=== PATIENT | female | born 1955 | race Caucasian/White ===

== ENCOUNTER 2022-05-14 14:00 | Outpatient (RCR) | payer MEDICARE, OTHER, SELFPAY | END 2022-05-14 16:38 | disposition home or self-care (01) | PROVIDERS: PCP Family Medicine; Visit Provider Physician Assistant Surgical | DX: M75.102 Unspecified rotator cuff tear or rupture of left shoulder, not specified as traumatic (principal); M19.012 Primary osteoarthritis, left shoulder; Z51.89 Encounter for other specified aftercare | CPT/HCPCS: 97110; 97112; 97161 ==

== ENCOUNTER 2022-08-05 09:37 | Day surgery (SDC) | payer MEDICARE, OTHER, SELFPAY ==
[2022-08-05] VITALS (19 sets, daily range): BP systolic 120–169; BP diastolic 57–87; PULSE 60–110; RESP 12–20; TEMP 36.4–37.3; O2SAT 88–97; BMI 42.9
[2022-08-05] MEDS: LACTATED RINGERS 1000 ML 1,000 ML 100 ML IV ×2 (10:25→14:02)
[2022-08-05] MEDS: SODIUM CHLORIDE 0.9 % (FLUSH) 10 ML SYRINGE IVF (10:25)
--- NOTE | 2022-08-05 12:40 | W.ANESCHARGE ---
Anesthesia Charges Start Date/Time Anesthesia Start Date: 08/05/22 Anesthesia Start Time: 11:42 Stop Date/Time Anesthesia Stop Date: 08/05/22 Anesthesia Stop Time: 12:40 Summary Emergency: No
--- NOTE | 2022-08-05 13:05 | SUR.PREOP ---
TIME?OUT:?1305, left shoulder PT/RN/MDA?VERIFICATION?OF?SURGICAL?SITE,?PROCEDURE,?AND?CONSENT OBTAINED?PRIOR?TO?INVASIVE?PROCEDURE.
[2022-08-05] MEDS: fentaNYL 100 MCG/2 ML inj IVP (13:08)
[2022-08-05] MEDS: MIDAZOLAM HCL 1 MG/ML inj IVP (13:08)
--- NOTE | 2022-08-05 13:20 | SUR.PREOP ---
home covid test negative
[2022-08-05] MEDS: CEFAZOLIN 2 GM in 0.9 % SODIUM CHLORIDE Mini-bag 100 ML IVPB (13:35)
[2022-08-05] MEDS: EPINEPHrine 1 MG in SODIUM CHLORIDE IRRIG SOLUTION 3,000 ML 3001 MG IRRIGATION ×5 (14:16→15:52)
--- NOTE | 2022-08-05 14:56 | P.NB_ITS ---
Nerve Block Nerve Block Time Seen by Provider: 13:05 Date Seen: 08/05/22 Type of block requested by surgeon for post-operative analgesia: supraclavicular Side: left Time out performed: Yes Verification of patient name: Yes Verification of date of : Yes Site marking: site marked Name of person performing procedure: Moreno Continuous monitoring Was continuous monitoring of O2 sat, B/P, boat outboard engine mechanic, recorded every 15 minutes?: Yes Procedure Checklist: sterile prep, needles and gloves Ultrasound guided. Images saved: Yes Medications given in 5ml increments after negative aspiration: Ropivicaine %: 0.5 mL: 20 Needle gauge: 22 Decadron (mg): 10 Precedex (mcg): 25 Patient tolerated procedure well: Yes Block Charges Block Charge (with Pro Fee): Brachial Plexus Use of Ultrasound Machine for Block: Yes- US Guidance/pain block
--- NOTE | 2022-08-05 15:51 | P.ORPRC_ITS ---
Procedure Note Date of procedure: 08/05/22 Procedure: PREOPERATIVE DIAGNOSES: 1. Left shoulder rotator cuff tear. 2. Left shoulder AC degenerative joint disease 3. Left shoulder high-grade partial-thickness long head biceps tear 4. Left shoulder labral tearing 5. 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 Left shoulder subacromial impingement syndrome. POSTOPERATIVE DIAGNOSES: 1. Left shoulder rotator cuff tear. 2. Left shoulder AC degenerative joint disease 3. Left shoulder high-grade partial-thickness long head biceps tear 4. Left shoulder labral tearing 5. 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 Left shoulder subacromial impingement syndrome. NAME OF OPERATION: 1. Left shoulder arthroscopic rotator cuff repair (upper border subscapularis and full-thickness supraspinatus) 2. Left shoulder arthroscopic distal clavicle excision 3. Left shoulder arthroscopic long head of biceps tenotomy 4. Left shoulder arthroscopic extensive glenohumeral debridement 5. Left shoulder arthroscopic bursectomy, subacromial decompression/partial acromioplasty. SURGEON: Jose Elias Milan MD CHOIR DIRECTOR: Mateusz Samaniego PA-C. Of note, a skilled it assistant was critical for this case to aide in patient positioning, suture manipulation, arm positioning, instrument positioning, and closure. ANESTHESIA: General plus preoperative supraclavicular block. EBL: 50 mL IMPLANTS: Arthrex 4.75 mm BioComposite SwiveLock suture anchor (x1); 5.5 mm BioComposite SwiveLock suture anchor (x3); 5.5 mm BioComposite corkscrew suture anchor (x1) COMPLICATIONS: Of note, the miniscule tip to the scorpion needle did break off during 1 of the attempted passages of the suture through the rotator cuff superiorly. After inspection on both the articular side and the bursal side, this was not encountered or visualized. This tip it has a slight blunted surface to it is extremely small and thin. INDICATIONS: The patient is a pleasant, 67-year-old female who has experienced left shoulder pain that has been increasing in recent time. Physical exam and imaging were consistent with a rotator cuff tear. Given their findings, as well as the weakness and pain, and inadequate response to nonoperative management, recommendation was made for surgery. FINDINGS: Exam under anesthesia revealed stable shoulder with excellent range of motion. The diagnostic arthroscopy revealed grade 2-3 chondromalacia humeral head and glenoid with some loose flaps. The Subscapularis tendon was torn from its upper border with moderate retraction. The long head of the biceps tendon was torn high-grade partial-thickness man. The superior rotator cuff tendon was found to be torn full-thickness in an L-shaped type pattern retracted posteriorly. The labrum was degeneratively frayed and torn in the anterior and superior aspects primarily. No loose bodies were identified within the pouch or subscapularis recess. PROCEDURE: Following a thorough discussion of risks, benefits, and alternatives, consent was obtained and the left shoulder was marked. The patient was brought to the operating room and placed supine on the operating table. Induction of anesthesia was completed after preoperative supraclavicular block was administered in preop holding. Appropriate time out was performed identifying proper patient, site, and procedure. 2 g IV Ancef was administered within 1 hour of incision preoperatively. The left upper extremity was prepped and draped in the appropriate sterile fashion using ChloraPrep prep. This was after the patient was positioned in the beach chair with their head in neutral alignment and all bony prominences well padded. The shoulder was insufflated with 20mL of normal saline via an 18g spinal needle from a posterior approach. An 11 blade skin incision allowed a blunt trochar to be inserted and diagnostic arthroscopy to be performed with the findings as noted above. An anterior portal was established with an outside in technique. This allowed the probe to be inserted and confirm the diagnostic arthroscopic findings. The shaver was then inserted and allowed debridement of the anterior and superior labrum. Additionally, the long of the biceps was released from the bicipital tuberosity for arthroscopic tenotomy. The stump was debrided with a shaver. Debridement of the loose chondral flaps on both the glenoid and humeral head chondral tissue was also performed with the torpedo shaver. Following this, the upper border subscapularis was repaired after debriding the lesser tuberosity with the shaver and [place] cautery. Subscapularis was captured in horizontal mattress fashion with a fiber tape suture. The tails were brought to a single anchor in the lesser tuberosity with excellent reapproximation of the subscap tendon and good excursion/tension. Thereafter, the subacromial space was entered. Here, a complete bursectomy and partial acromioplasty/subacromial decompression was performed with a combination of radiofrequency ablator, the shaver, and a 5.5 mm bur. Additionally, distal clavicle excision was performed with the bur. 8 mm of distal clavicle was resected based on the width of our bur. Further inspection of the supraspinatus and infraspinatus rotator cuff was performed. This identified the tear as noted above. The margins of the tear were debrided, and the greater tuberosity was debrided with a combination of the [place] cautery, shaver, and bur on reverse setting. After gentle decortication, a posterior medial anchor was 1st placed. This intended to be a 2.6 mm FiberTak RC. Unfortunately, this ended up pulling out of the bone. When the hip using a 5.5 mm SwiveLock suture anchor with 1 of the tapes passed through its eyelet. This tape was passed with a fiber link through the posterior rotator cuff tissue that have been retracted. In anterior medial 5.5 mm corkscrew suture anchor was chosen as well. This allowed us to pass the 4 tails of the double loaded suture independently. We were able to tie these arthroscopically to help take the tension off the rotator cuff. Tails from this as well as the posterior medial anchor tails were passed then into 2 separate lateral row anchors. Excellent reapproximation rotator cuff to the greater tuberosity was achieved. After finishing this, it was determined that a side to side marginal convergence suture would benefit the repair in the anterior aspect. Thus, 1 of the tapes was passed and tied accordingly. Prior to anchor commercial driver's license driver removal, the eyelet sutures were tugged on for each anchor and found that the anchor had excellent stability within the bone. The shoulder was placed through range of motion and found to be stable. The rotator cuff was re-probed and found to be stable. Instruments were removed. Excess fluid was drained, closure performed with 4-0 Monocryl and Steri-Strips. Dressings were applied. Sling was applied. The patient was awoken from anesthesia and transferred to the PACU in stable condition. A skilled it assistant was critical for this case to aid in patient positioning, limb positioning, skill to manipulate arthroscopic instruments and camera, suture management, patient safety, and closure. PLAN: 1. Elbow, forearm, wrist and digit range of motion of operative extremity as tolerated. 2. Encouraged ice. 3. [place] for pain as needed. 4. Sling at all times except for ROM and showering. 5. Follow up with PA visit in 1-2 weeks for wound check. Initiate physical therapy following that visit for passive range of motion. Initiate active assisted range of motion at 4-6 weeks depending on tear size. May do pendulums now.
[2022-08-05] MEDS: EPINEPHrine 1 MG in SODIUM CHLORIDE IRRIG SOLUTION 3,000 ML 2200 MG IRRIGATION (15:53)
--- NOTE | 2022-08-05 16:18 | W.ANESCHARGE ---
Anesthesia Charges Start Date/Time Anesthesia Start Date: 08/05/22 Anesthesia Start Time: 13:31 Stop Date/Time Anesthesia Stop Date: 08/05/22 Anesthesia Stop Time: 16:16 Summary Emergency: No
--- NOTE | 2022-08-05 16:22 | W.ANESCHARGE ---
Anesthesia Charges Start Date/Time Anesthesia Start Date: 08/05/22 Anesthesia Start Time: 13:31 Stop Date/Time Anesthesia Stop Date: 08/05/22 Anesthesia Stop Time: 16:16 Summary Emergency: No
[2022-08-05] MEDS: ONDANSETRON 2 MG/ML inj 4 MG IVP (16:34)
--- NOTE | 2022-08-05 17:46 | SUR.PHASEII ---
oxygen sats dipping into the mid 80's between deep breathing. able to bring them up but unable to maintain. will send to m/s for continued monitoring of sats.
--- NOTE | 2022-08-05 18:07 | SUR.PHASEII ---
pt continues to drop her sats into the upper 80's. will send her to m/s for observation
--- NOTE | 2022-08-05 18:26 | SUR.PHASEII ---
sent pt to m/s at 1814, report to nurse at bedside
--- NOTE | 2022-08-05 20:25 | PC.NURSE ---
Patient brought to room 247 via W/C from [facility]. Up with SBA, tolerated well. Slight dizziness upon standing, but feeling subsided quickly. VSS. CMS intact, LUE numb. Denies pain. Taking ice chips and food.
--- NOTE | 2022-08-05 20:31 | PC.NURSE ---
Patient has secured a ride home and someone who will stay with her this evening. Mateusz LOPEZ, updated, and states patient may discharge to home if oxygen sats have been WNL. Primary nurse notified of this.
[2022-08-05] MEDS: ACETAMINOPHEN 325 MG TABLET 650 MG PO (21:05)
[2022-08-05] MEDS: SENNOSIDES 1 TAB TABLET 2 TAB PO (21:05)
--- NOTE | 2022-08-05 22:46 | PM.IMPN1 ---
Progress Note: A&P Assessment and plan (1) Rotator cuff tear, left: Status: Acute (2) Rotator cuff insufficiency of left shoulder: Problem details: 66-year-old female left shoulder rotator cuff insufficiency, concern for supraspinatus tendon tear, long head biceps tear versus tendinopathy, verses subluxation Status: Acute (3) Tendinopathy of left rotator cuff: Status: Acute Plan 1. s/p Left rotator cuff repair; pain control; diet per surgery 2. Hx of HTN; conitnue metoprolol; lisinopril, hctz in AM Time Spent With Patient Total time spent: 15 Subjective Date Seen: 08/05/22 Interval history: patient doing well after surgery tolerating diet denies cp, sob PREOPERATIVE DIAGNOSES:? 1.? Left shoulder rotator cuff tear. 2.? Left shoulder AC degenerative joint disease 3.? Left shoulder high-grade partial-thickness long head biceps tear 4.? Left shoulder labral tearing 5.? 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 Left shoulder subacromial impingement syndrome. POSTOPERATIVE DIAGNOSES:? 1.? Left shoulder rotator cuff tear. 2.? Left shoulder AC degenerative joint disease 3.? Left shoulder high-grade partial-thickness long head biceps tear 4.? Left shoulder labral tearing 5.? 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 Left shoulder subacromial impingement syndrome. NAME OF OPERATION:? 1.? Left shoulder arthroscopic rotator cuff repair (upper border subscapularis and full-thickness supraspinatus) 2.? Left shoulder arthroscopic distal clavicle excision 3.? Left shoulder arthroscopic long head of biceps tenotomy 4.? Left shoulder arthroscopic extensive glenohumeral debridement 5.? Left shoulder arthroscopic bursectomy, subacromial decompression/partial acromioplasty. Exam Narrative: Exam Narrative: Gen: no acute distress HEENT: NCAT EOMI mmm Neck: Supple CV: RRR normal s1 s2 Lungs: CTAB Abd: Soft,nt, nd Neuro: Alert, oriented, CN grossly intact; nonfocal screening?exam Psych: appropriate affect MSK: age appropriate muscle mass Skin; Warm, dry no rash on face Const: Vital Signs, click to edit/add: Vital Signs - 24 hr 08/05/22 10:11 08/05/22 13:05 08/05/22 13:10 Temperature 98.7 F Pulse Rate 81 66 60 Pulse Rate [Right Pulse Oximeter] Respiratory Rate 20 20 20 Blood Pressure 169/71 H 146/77 H 129/75 Blood Pressure [Le ft Arm] Blood Pressure [Ri ght Arm] Pulse Oximetry 95 97 96 Oxygen Delivery Me thod Room Air Nasal Cannula Nasal Cannula Oxygen Flow Rate 2 2 08/05/22 16:10 08/05/22 16:15 08/05/22 16:20 Temperature 97.9 F Pulse Rate 110 H 103 H 92 Pulse Rate [Right Pulse Oximeter] Respiratory Rate 18 16 16 Blood Pressure 145/72 H 140/79 H 134/74 Blood Pressure [Le ft Arm] Blood Pressure [Ri ght Arm] Pulse Oximetry 94 92 91 Oxygen Delivery Me thod OxyMask Oxygen Flow Rate 8 08/05/22 16:25 08/05/22 16:30 08/05/22 16:35 Temperature Pulse Rate 87 85 81 Pulse Rate [Right Pulse Oximeter] Respiratory Rate 14 12 12 Blood Pressure 135/72 134/67 129/73 Blood Pressure [Le ft Arm] Blood Pressure [Ri ght Arm] Pulse Oximetry 90 92 92 Oxygen Delivery Me thod Room Air Oxygen Flow Rate 08/05/22 16:40 08/05/22 16:55 08/05/22 17:13 Temperature 97.9 F 97.5 F L Pulse Rate 78 73 80 Pulse Rate [Right Pulse Oximeter] Respiratory Rate 12 20 20 Blood Pressure 126/70 126/87 129/68 Blood Pressure [Le ft Arm] Blood Pressure [Ri ght Arm] Pulse Oximetry 93 93 88 Oxygen Delivery Me thod Room Air Room Air Oxygen Flow Rate 08/05/22 17:36 08/05/22 17:58 08/05/22 18:27 Temperature 97.5 F L 97.7 F Pulse Rate 80 85 74 Pulse Rate [Right Pulse Oximeter] Respiratory Rate 20 20 20 Blood Pressure 121/63 131/64 Blood Pressure [Le ft Arm] 148/83 H Blood Pressure [Ri ght Arm] Pulse Oximetry 91 92 Oxygen Delivery Me thod Room Air Room Air Room Air Oxygen Flow Rate 08/05/22 18:37 08/05/22 20:50 Temperature 99.1 F Pulse Rate Pulse Rate [Right Pulse Oximeter] 80 96 Respiratory Rate 20 20 Blood Pressure Blood Pressure [Le ft Arm] 149/74 H Blood Pressure [Ri ght Arm] 162/81 H Pulse Oximetry 95 90 Oxygen Delivery Me thod Room Air Room Air Oxygen Flow Rate
--- NOTE | 2022-08-06 02:05 | PC.NURSE ---
2100: Pt was asking about discharge, but noted oximetry 87-89% while awake and eating, informed her to use IS and we will monitor her oximetry for a half hourish, but after a couple minutes she dipped to 85% while watching tv, thus pt staying the night with oxygen via nc @1lpm. updated.
[2022-08-06] MEDS: ACETAMINOPHEN 325 MG TABLET 650 MG PO ×2 (03:30→08:44)
[2022-08-06 03:47] VITALS: BP 121/69; PULSE 83; RESP 18; TEMP 36.6; O2SAT 91
--- NOTE | 2022-08-06 07:34 | PC.NURSE ---
Status [id number] Pt alert and oriented. Denies pain to left arm. PRN tylenol given for headache. BP elevated at beginning of shift but improved overnight. Requiring 1L of supplemental oxygen to maintain sats >90%. Attempted to wean to room air but desats to 88-89%. Left arm in sling. Dressing CDI. Voiding without difficulty. Intermittent resting in chair overnight. Hopeful for d/c today.
[2022-08-06 08:00] VITALS: BP 131/63; PULSE 79; RESP 20; TEMP 36.8; O2SAT 92
[2022-08-06] MEDS: lisinopriL 20 MG TABLET PO (08:49)
[2022-08-06] MEDS: hydroCHLOROthiazide 12.5 MG CAPSULE PO (08:49)
[2022-08-06] MEDS: METOPROLOL SUCCINATE (XL) 25 MG TAB PO (08:49)
[2022-08-06] MEDS: SODIUM CHLORIDE 0.9 % (FLUSH) 10 ML SYRINGE IVF (08:50)
[2022-08-06 11:00] VITALS: PULSE 71; RESP 18; TEMP 36.8; O2SAT 92
== END 2022-08-06 11:30 | disposition home or self-care (01) ==
LOC: OR 12:28 → MEDSURG 20:00
PROVIDERS: PCP Family Medicine; Visit Provider Orthopaedic Surgery Sports Medicine
PROC: (CPT 29805; principal; 2022-08-05 11:00)
DX: M75.122 Complete rotator cuff tear or rupture of left shoulder, not specified as traumatic (principal); S46.112A Strain of muscle, fascia and tendon of long head of biceps, left arm, initial encounter; M19.012 Primary osteoarthritis, left shoulder; M94.212 Chondromalacia, left shoulder; M75.42 Impingement syndrome of left shoulder; M25.512 Pain in left shoulder; S43.432A Superior glenoid labrum lesion of left shoulder, initial encounter
CPT/HCPCS: 29827; 29826; 29824; 29823; 29828; 01400; 01630; 64415; 76942; A4565; A9270; C1713; J0171; J0690; J1100; J2250; J2405; J2704; J2710; J2795; J3010; J7120

== ENCOUNTER 2022-12-31 15:00 | Outpatient (RCR) | payer MEDICARE, OTHER, SELFPAY ==
--- NOTE | 2022-09-03 10:04 | PT.OPEX ---
PT [place] Outpatient Eval PT [facility] Outpatient Eval Start: 09/03/22 08:59 Freq: Status: Active Protocol: Document 09/03/22 09:00 [facility] (Rec: 09/03/22 10:00 [facility] [id number]) E-signed By Benigno Moseley PT Physical Therapy Outpatient Evaluation Insurance Information Recert Due Date 12/02/22 Insurance Name Medicare B Medical Diagnosis s/p L RCR 08/05/22 Treating Diagnosis L shoulder pain Left shoulder impaired ROM Referring JESSICA Allison Subjective Subjective Patient just recently stopped using the sling 4 weeks post- op. Pain is intermittent. Sleep is still disrupted by pain. Hard to find just the right amount support. Only taking Advil for pain. Pain Comments At worst: 8/10 Painfree when not moving Date of Last Physician Visit 08/12/22 Date of Next Physician Visit 09/08/22 Date of Surgery (If applicable) 08/05/22 Current Work Status Retired Preferred Name Alejandra Precautions Treatment Precautions/Contraindications PROM for first 4-6 weeks Therapy Limitations/Systems Review Not Limited Objective Other/Pertinent Objective Left shoulder: PROM Flexion: 120 deg Abduction: 120 deg ER: 45 deg IR: 55 deg Left elbow/wrist: WNL Strength: Shoulder not tested d/t post op protocol restrictions Left ellbow: 4/5 wrist/hand: WNL Functional Test Performed & Score Left shoulder: Unable to perform any active movements with left shoulder Assessment Assessment/Impression 67 year old female ~one month s/p left RCR (08/05/22) presents with impaired ROM and strength as are to be expected post-op. For only just starting PT today, patient tolerated PROM quite well. She has a history of more involved R RCR, so is familiar with the rehab process. Patient to benefit from skilled PT for safe progression of rehab protocol Primary Functional Limitations any activity that involves use of left UE (ie reach overhead , sleep, lift/carry, don/doff jacket) Plan of Care Rehabilitation Potential Excellent Physical Therapy Goals In 2-3 weeks, patient will: 1) Restore full PROM left shoulder to facilitate progression to next phase of rehab 2) Report 50% improvement in sleep ability in relation to pain In 6-8 weeks, patient will: 3) Reach into overhead cabinet to retrieve light object, painfree 4) Don/doff jacket/pullover shirt with ease and painfree 5) Sleep not disrupted by shoulder pain 6) Be I with comprehensive HEP to further functional progress independently Coordination/Communication With Referral Source Treatment Plan/Direct Interventions Manual Therapy,Neuromuscular Re-ed,Self-Care/Home Management,Therapeutic Activities,Therapeutic Exercises Direct Interventions Clarification s/p RCR protocol Comments Frequency/Duration 1-2x/week for first 2-3 weeks. Decrease to 1x/ for an additional 5-6 weeks Patient Will Be Discharged From Therapy Completion of LTG(s), Independent w/HEP, Independently Progressing Evaluation Billing Untimed Code Treatment Minutes 25 Complexity Low Certification Information Initial Certification Date 09/03/22 Ending Certification Date 12/02/22 Provider Signature Shows Agreement With POC & Medical Necessity Physician Signature & Date Requested Please Sign/Date Here Physician Comment/Change : Physician NPI Number #
--- NOTE | 2022-12-07 17:23 | PT.OPDNX ---
PT [place] Outpatient Daily Note PT [facility] Out[facility] Daily Note Start: 09/03/22 08:59 Freq: Status: Active Protocol: Document 12/07/22 15:05 [facility] (Rec: 12/07/22 15:46 [facility] [id number]) E-signed By Benigno Moseley, PT PT OP Daily Progress Note Visit Information Note Type Daily Note,Recert/Progress Note Visit Number [id number] Insurance Authorized Visits up to 18 on POC Insurance Information Recert Due Date 03/05/23 Insurance Name Medicare B Medical Diagnosis s/p L RCR 08/05/22 Treating Diagnosis L shoulder pain Left shoulder impaired ROM Referring JESSICA Allison Subjective Subjective Pt does not feel like her shoulder is getting better. She is wondering if she should get in to see Dr. Milan sooner than 3-4 weeks out. She also is noticing crunching in her shoulder. Pain Comments Left shoulder pain will get severe at worst. Objective Other/Pertinent Objective Left shoulder AROM/PROM Flexion: 90 deg/ 140 deg (pain ) Abd: 45 deg/ 155 deg ER: reach to left occiput/ 85 deg IR: reach to left PSIS/ 70 deg Functional Test Performed & Score Reach into overhead cabinet: unable to due to pain Reach behind head to wash hair : difficult and painful Patient Instructed in Risks/Benefits Yes Therapeutic Exercise Therapeutic Exercise Minutes (minutes) 40 Therapeutic Exercise: To Restore overhead pulleys Functional Status Check of AROM left shoulder Forward bent on bench L horizontal abduction, painfree GTB IR 30x, painfree YTB ER 30x, painfree GTB rows 30x, painfree GTB shoulder ext 30x, painfree Supine AAROM left shoulder flexion, painful and crunching Advised Alejandra to focus on stretching/ROM exercises to maintain current ROM along with continuing strengthening ex that are non-pain provoking . Treatment Minutes Timed Code Treatment Minutes 40 Total Treatment Time 40 Billing Units Therapeutic Exercise Units 3 Assessment/Impression Assessment/Impression Alejandra has regressed in the past two weeks with her s/p RCR rehab with increasing left shoulder pain most aggravated by overhead movements. Her PROM is WNL but active flexion and abduction are limited significantly by pain. Rotational strength testing with elbow by side is 4/5 and painfree. It is not clear what is causing the flare of her shoulder pain active flexion and abduction, but I do recommend adding on additional skilled PT for every other week check-ins until, at a minimum, she has her f/u with Dr Milan 01/05/23/ Plan of Care Physical Therapy Goals In 2-3 weeks, patient will: 1) Restore full PROM left shoulder to facilitate progression to next phase of rehab - nearly met 2) Report 50% improvement in sleep ability in relation to pain In 6-8 weeks, patient will: 3) Reach into overhead cabinet to retrieve light object, painfree - not met 4) Don/doff jacket/pullover shirt with ease and painfree - not met 5) Sleep not disrupted by shoulder pain- not met 6) Be I with comprehensive HEP to further functional progress independently- progressing toward Daily Plan of Care Change POC; See Comments Daily Plan of Care Comments Continue skilled PT 2-3x/month for 2-3 more months. 8 more visits. Recertification Information Initial Certification Date 12/02/22 Recertification Start Date 12/07/22 Recertification Due Date 03/05/23 Reasons to Continue Skilled Therapy Pt continues to have left shoulder pain with active flexion and abduction. She has not met her functional goals. Rehabilitation Potential Good/Excellent Patient is self-motivated and compliant with HEP/rehab activities Continued Plan of Care and Interventions Left shoulder ROM/progression RTC strengthening/ scap stabilization ex Skilled MT, prn Provider Signature Shows Agreement With POC & Medical Necessity Physician Comment/Change Comment or Changes Physician NPI Number #
== END 2023-03-23 13:52 | disposition home or self-care (01) ==
PROVIDERS: PCP Family Medicine; Visit Provider Physician Assistant Surgical
DX: Z98.890 Other specified postprocedural states (principal); Z74.09 Other reduced mobility; M25.512 Pain in left shoulder; Z51.89 Encounter for other specified aftercare
CPT/HCPCS: 97110; 97112; 97140; 97161; 97535

== ENCOUNTER 2023-04-12 08:44 | Outpatient (CLI) | payer MEDICARE, OTHER, SELFPAY | END 2023-04-12 08:45 | disposition home or self-care (01) | LOC: CT 08:45 | PROVIDERS: PCP Family Medicine; Visit Provider Orthopaedic Surgery Sports Medicine | DX: M19.012 Primary osteoarthritis, left shoulder (principal); M75.122 Complete rotator cuff tear or rupture of left shoulder, not specified as traumatic; Z01.818 Encounter for other preprocedural examination | CPT/HCPCS: 73200 ==

== ENCOUNTER 2023-08-02 09:34 | Day surgery (SDC) | payer MEDICARE, OTHER, SELFPAY ==
[2023-08-02] VITALS (24 sets, daily range): BP systolic 119–171; BP diastolic 36–88; PULSE 58–94; RESP 16–20; TEMP 35.8–36.7; O2SAT 88–98; BMI 41.1
--- OUTSIDE RECORDS SUMMARY | 2023-08-02 09:38 | XMS_ITS | Continuity of Care Document ---
Author Name Unknown Organization [facility] Address [address] [place] [address] Phone Care Team Providers Care Pearl Stringer Name Role Phone Marlon SAM, Amitressa Unavailable Unavailable Allergies, Adverse Reactions, Alerts Substance Reaction Status Criticality No Known Allergies Active No Inform ation Medications Medication Instructions Dosage Effective Dates (start - stop) Status Comments Medrol (Roger) 4 mg tablets in a dose pack take by po route Not Available - Active Lidoderm 5 % topical patch apply 1 patch by transdermal route every day (May wear up to 12hours.) 1.00 patch - Active Valium 5 mg tablet Take one tablet 30 minutes before procedure. - Active METOPROLOL SUCCINATE (unknown strength) Not Available - Active CARBAMAZEPINE ER (unknown strength) Not Available - Active Procedures Procedure Date Office/Outpatient Visit,Est, Mod 2015 X-Ray Exam Lower Spine 2-3 Views 2015 Office/Outpatient Visit,Est, Mod 2014 X-Ray Exam Lower Spine 2-3 Views 2014 Postop Followup Visit X-Ray Exam Lower Spine 2-3 Views 2014 Arthdsis Post/Posterolatrl/Postinterbody Lumbar Remove Intraspinal Lesion, Lumbar Low Back Disk Surgery/Decompress 2013 Insert Spine Fixation, Posterior 2013 Apply Spinal Prosthetic Device 14 Autograft, Spine Surgery, Local 014 Allograft, Spine Surg, Morselized Pa Arthdsis Post/Posterolatrl/Postinterb angel Lumbar Remove Intraspinal Lesion, Lumbar 3 Modifier Low Back Disk Surgery/Decompr ess Pa Assist Insert Spine Fixation, Posteri or Pa Assist Apply Spinal Prosthetic Device Office/Outpatient Visit,Est, Mod 2013 X-Ray Exam Lwr Spine, Min 4 Views Office/Outpatient Visit,New, Mod 2013 Advance Directives Directive Yes / No Effective Date File Name No Information Encounters Encounter Description Practice Location Reason(s) For Visit Diagnoses Date Provider Providers Copied on Encounter [facility], [address] [facility], [place], [place], [id number], tel:[phone] [facility] No Information 7 Marlon Palmer [facility], [address], [id number], [place]. tel:[phone] [facility], [address] [place] [address], [id number], [place] tel:[phone] [facility] No Information 7 Ecryland Arthur. [address] [place] [address], [id number], [place]. tel:[phone] [facility], [address] [facility], [place], [place], [id number], tel:[phone] [facility] No Information 6 Ecryland Arthur. [address], [id number], [place]. tel:[phone] Office/Outpa tient Visit,Est, Mod [facility], [address], [place], [place], [id number], [place] tel:[phone] [facility] Spinal stenosis, lumbar region 6 Eckrfrancie Arthur. [address], [id number], [place]. tel:[phone] Referring Provider: [facility] [address] [place] [address], [place], [address]. tel:[phone] Office/Outpa tient Visit,Est, Mod [facility], [address], [place], [place], [id number], [place] tel:[phone] [facility] Spinal stenosis of lumbar region without neurogenic claudication Spinal stenosis of lumbar region with neurogenic claudication 0-201 5 Mehbod Amir. [facility] [place], [address], [place], [place], [id number], [place]. tel:[phone] Referring Provider: [facility] [address] [place] [address], [place], [address]. tel:[phone] [facility], [address], [place], [place], [id number], [place] tel:[phone] [facility] Backache, unspecifiedO VERWEIGHT 6201 5 Mehbod Amir. [facility] [place], [address], [place], [place], [id number], [place]. tel:[phone] Referring Provider: [facility] [address] [place] [address], [address]. tel:[phone] [facility], [address], [place], [place], [id number], [place] tel:[phone] [facility] No Information 0-201 4 Mehbod Amir. [facility] [place], [address] [place] [address] [address], [place], [place], [id number], [place]. tel:[phone] Referring Provider: [facility] [address] [place] [address], [place], [address]. tel:[phone] Office/Outpa tient Visit,Est, Mod Z [facility] [place], [address], [place], [address], [place] tel:[phone] [facility] No Information 4 Mehbod Bryan. [facility] [place], [address], [place], [place], [id number], [place]. tel:[phone] Referring Provider: [facility] [address] [place] [address], [place], [address]. tel:[phone] Office/Outpa tient Visit,New, [facility] [place], [address], [place], [address], [place] tel:[phone] [facility] Back Pain (chief complaint) No Information Susie Espinoza. [facility], [address], [address], [place], [place], [id number], [place]. tel:[phone] Referring Provider: [facility] [address] [place] [address], [place], [address]. tel:[phone] Family History Family Member Type Diagnosis Age At Onset No Information Payers Payer name Insurance type Covered republican ID Authoriza tion(s) [employer] CI [id number] Social History Type Description Quantity Date Captured Comments Sex Female Smoking Status No Information Chief Complaint And Reason For Visit No Information Reason For Referral Reason For Referral No Information Plan Of Treatment Date Type Action Status Future Order: Radiology Order AP Lateral Lumbar (APLatLumb), Ordered on: Ordered History Of Present Illness Encounter Date Complaint History Of Prese nt Illness Back Pain Functional Status Date Functional Assessmen t No Information Instructions Date Instruction Additional Infor mation Weight Management Related to Ove rweight Assessments Type Assessment Date No Information Patient Care Teams Name Effective Dates (start - stop) Status Members No Information
--- OUTSIDE RECORDS SUMMARY | 2023-08-02 09:39 | XMS_ITS | Continuity of Care Document ---
Author Name Unknown Organization [facility] Address [address] [place] [address] Phone Care Team Providers Care Asset Manager Name Role Phone Marlon SAM, Amitressa Unavailable [...] Providers Copied on Encounter [facility], [address] [facility], [place], [place], [id number], tel:[phone] [facility] No Information 7 Marlon Palmer [facility], [address], [id number], [place]. tel:[phone] [facility], [address] [place] [address], [id number], [place] tel:[phone] [facility] No Information 7 Ecryland Arthur. [address] [place] [address], [id number], [place]. tel:[phone] [facility], [address] [facility], [place], [place], [id number], tel:[phone] [facility] No Information 6 Ecryland Arthur. [address], [id number], [place]. tel:[phone] Office/Outpa tient Visit,Est, Mod [facility], [address], [place], [place], [id number], [place] tel:[phone] [facility] Spinal stenosis, lumbar region 6 Eckrfrancie Arthur. [address], [id number], [place]. tel:[phone] Referring Provider: [facility] [address] [place] [address], [place], [address]. tel:[phone] Office/Outpa tient Visit,Est, Mod [facility], [address], [place], [place], [id number], [place] tel:[phone] [facility] Spinal stenosis of lumbar region without neurogenic claudication Spinal stenosis of lumbar region with neurogenic claudication 0-201 5 Mehbod Amir. [facility] [place], [address], [place], [place], [id number], [place]. tel:[phone] Referring Provider: [facility] [address] [place] [address], [place], [address]. tel:[phone] [facility], [address], [place], [place], [id number], [place] tel:[phone] [facility] Backache, unspecifiedO VERWEIGHT 6201 5 Mehbod Amir. [facility], [address], [place], [place], [id number], [place]. tel:[phone] Referring Provider: [facility] [address] [place] [address], [address]. tel:[phone] [facility], [address], [place], [place], [id number], [place] tel:[phone] [facility] No Information 0-201 4 Mehbod Amir. [facility], [address] [place] [address] [address], [place], [place], [id number], [place]. tel:[phone] Referring Provider: [facility] [address] [place] [address], [place], [address]. tel:[phone] Office/Outpa tient Visit,Est, Mod Z [facility], [address], [place], [address], [place] tel:[phone] [facility] No Information 4 Mehbod Bryan. [facility], [address], [place], [place], [id number], [place]. tel:[phone] Referring Provider: [facility] [address] [place] [address], [place], [address]. tel:[phone] Office/Outpa tient Visit,New, [facility] [place], [address], [place], [address], [place] tel:[phone] [facility] Back Pain (chief complaint) No Information Susie Espinoza. [facility], [address], [address], [place], [place], [id number], [place]. tel:[phone] Referring Provider: [facility] [address] [place] [address], [place], [address]. tel:[phone] Family History Family Member Type Diagnosis Age At Onset No Information Payers Payer name Insurance type Covered green party ID Authoriza tion(s) [employer] CI [id number] Social History Type Description Quantity Date Captured [...]
[2023-08-02] MEDS: LACTATED RINGERS 1000 ML 1,000 ML 100 ML IV ×2 (09:50→13:45)
--- NOTE | 2023-08-02 10:21 | CRLHL7_ITS ---
For Patients: As a result of the Cures Act, medical imaging exams and procedure reports are released immediately into your electronic medical record. You may view this report before your referring provider. If you have questions, please contact your health care provider. INDICATION: Left shoulder surgery. Follow-up. TECHNIQUE: Two postoperative images of the left shoulder. FINDINGS: Left total shoulder arthroplasty. The components are adequately aligned and well seated. No postoperative dislocation. No erosive change. IMPRESSION: Left total shoulder arthroplasty. The components are adequately aligned and well seated. Dictated by Ankur Schumacher MD @ 08/03/2023 9:34:10 AM (Electronically Signed)
[2023-08-02] MEDS: OXYCODONE (CR) 10 MG TAB.ER.12H PO (11:15)
[2023-08-02] MEDS: ACETAMINOPHEN 500 MG TABLET 1000 MG PO ×2 (11:15→18:09)
[2023-08-02] MEDS: fentaNYL 100 MCG/2 ML inj IVP (11:20)
[2023-08-02] MEDS: MIDAZOLAM HCL 1 MG/ML inj IVP (11:20)
[2023-08-02] MEDS: SODIUM CHLORIDE 0.9 % (FLUSH) 10 ML SYRINGE IVF (11:27)
--- NOTE | 2023-08-02 11:28 | SUR.PREOP ---
TIME?OUT:?1119 PT/RN/MDA?VERIFICATION?OF?SURGICAL?SITE,?PROCEDURE,?AND?CONSENT OBTAINED?PRIOR?TO?INVASIVE?PROCEDURE.
[2023-08-02] MEDS: CEFAZOLIN 2 GM in 0.9 % SODIUM CHLORIDE Mini-bag 100 ML IVPB ×2 (11:45→18:09)
[2023-08-02] MEDS: TRANEXAMIC ACID 100 MG/ML INJ 1000 MG IV (11:45)
--- NOTE | 2023-08-02 12:04 | W.PM.H&PU ---
History & Physical Update History & Physical Update H&P Reviewed and patient assessed: No changes noted
--- NOTE | 2023-08-02 12:29 | P.NB_ITS ---
Nerve Block Nerve Block Time Seen by Provider: 11:19 Date Seen: 08/02/23 Type of block requested by surgeon for post-operative analgesia: supraclavicular Side: left Time out performed: Yes Verification of patient name: Yes Verification of date of : Yes Site marking: site marked Name of person performing procedure: Moreno Continuous monitoring Was continuous monitoring of O2 sat, B/P, traffic monitor specialist, recorded every 15 minutes?: Yes Procedure Checklist: sterile prep, needles and gloves Ultrasound guided. Images saved: Yes Medications given in 5ml increments after negative aspiration: Ropivicaine %: 0.5 mL: 20 Needle gauge: 22 Decadron (mg): 10 Precedex (mcg): 25 Patient tolerated procedure well: Yes Block Charges Block Charge (with Pro Fee): Brachial Plexus Use of Ultrasound Machine for Block: Yes- US Guidance/pain block
--- NOTE | 2023-08-02 12:30 | W.ANESCHARGE ---
Anesthesia Charges Start Date/Time Anesthesia Start Date: 08/02/23 Anesthesia Start Time: 11:38 Stop Date/Time Anesthesia Stop Date: 08/02/23 Anesthesia Stop Time: 13:30
--- NOTE | 2023-08-02 14:39 | W.ANESCHARGE ---
Anesthesia Charges Start Date/Time Anesthesia Start Date: 08/02/23 Anesthesia Start Time: 11:38 Stop Date/Time Anesthesia Stop Date: 08/02/23 Anesthesia Stop Time: 13:30
--- NOTE | 2023-08-02 14:41 | P.ORPRC_ITS ---
Procedure Note Date of procedure: 08/02/23 Procedure: PREOPERATIVE DIAGNOSIS: 1. Left shoulder osteoarthrosis, primary, severe with poor rotator quality/integrity 2. Left long head of the biceps tendinopathy and tenosynovitis POSTOPERATIVE DIAGNOSIS: 1. Left shoulder osteoarthrosis, primary, severe with poor cuff tissue quality 2. Left long head of the biceps tendinopathy and tenosynovitis PROCEDURE: 1. Left reverse shoulder arthroplasty. 2. Left long head of biceps open tenodesis SURGEON: Jose Elias Milan MD. FRONT OFFICE REPRESENTATIVE: Mateusz Samaniego PA-C; Yo MENDES - Of note, a skilled hospital administrative assistant was critical for this case to aid in patient positioning, tissue retraction, limb manipulation/positioning, retraction for glenoid exposure, which was challenging, awareness and protection of critical structures, and closure. ANESTHESIA: General plus supraclavicular block EBL: 150 ml IMPLANTS: DJ0 surgical Altivate humeral stem size 8 small shell, short with P2 porous coating vitamin E neutral poly small socket insert RSP glenoid base plate P2 porous coating with 4 perimeter locking screws 32 neutral glenosphere with retaining screw COMPLICATIONS: None evident INDICATIONS: The patient is a pleasant 68-year-old female who underwent a previous arthroscopic rotator cuff repair. Unfortunately, this failed. Her rotator cuff retear was found to be massive with significant retraction, atrophy, and fatty infiltration. Given her ongoing pain and dysfunction and failure of nonoperative management, surgery was indicated. DESCRIPTION OF PROCEDURE: Following a thorough discussion of risks, benefits, and alternatives, consent was obtained and the left shoulder was marked. The patient was brought to the operating room and placed supine on the operating table. Induction of anesthesia was undertaken. 2 g IV Ancef and 1 g tranexamic acid was administered within 1 hr of incision preoperatively. Appropriate time- out was performed identifying proper patient, site, and procedure. The operative extremity was prepped and draped in the appropriate sterile fashion using ChloraPrep after the patient was positioned in the lazy beach chair position with head in neutral alignment and all bony prominences well padded. A longitudinal incision was made for deltopectoral approach. Deltoid was retracted laterally. Cephalic vein was identified and retracted laterally as well. Vein was spared/protected throughout the case. The clavipectoral fascia was identified and divided longitudinally staying lateral to the conjoined tendon / coracoid. The conjoined tendon was protected with a blunt Hohmann. The long head of biceps tendon was identified through the bicipital groove distal part of the groove. It still was adhesed and head tenosynovitis surrounding it. The upper 1/4 of the pectoralis major was also released from its insertion. The long head of the biceps was tenodesed to the pectoralis major tendon. The remaining proximal tendon tissue was excised. The rotator cuff was inspected and found to have good integrity with the subscapularis but fair integrity with a supraspinatus, and a decision for a reverse shoulder arthroplasty was confirmed. The remaining long head of biceps, of note, was significant flattened, thickened, with abundant tenosynovitis. A subscapularis cuff of tissue was left via tenotomy for later repair with the remaining subscapularis released in a subperiosteal fashion with the Bovie. This was tagged for later repair. The 3 sisters were cauterized. The upper subscapularis was released from the capsule with a curved Kirby scissors towards the glenoid. The inferior subscapularis was divided from the capsular tissue on its caudal surface with particular caution for the axillary nerve. This was palpated anterior to the subscapularis both prior to and near the finish of the case. Inferior humeral head osteophytes were excised with caution taken throughout the case with regards to the axillary nerve. The humerus was dislocated, and humeral head cut completed. Then a protector plate was applied. We turned our attention to the glenoid. The humerus was retracted posteriorly. The subscap was protected anteriorly and the labrum/long head biceps origin was excised circumferentially. The capsule was released along the anterior and inferior portions of the glenoid cautiously with a Bustos elevator being careful not to penetrate deep. The glenoid had appropriate exposure, and was prepared with the cannulated system with a target of approximately 5-10? of inferior tilt and neutral anteversion (patient had its size 9 ? of retroversion initially). Utilizing the match Point 3D printed guide, the guide pin was placed. The 3D printed jig removed and after placing the guide pin, the tap was placed followed by the glenoid reaming. The real base plate was opened, and inserted, and excellent compression/purchase was achieved with the central screw. Peripheral screws were then drilled, measured, and placed. The glenosphere was then placed consistent with the preoperative plan utilizing the above noted glenosphere. After securing the glenosphere with the locking, torque limited screw, attention was turned back to the humerus. A canal finder was placed followed by various reamers by hand. The real humeral stem was then opened and inserted with excellent metaphyseal fit and stability. Trial poly was placed and the shoulder reduced. Excellent reduction and stability achieved with appropriate tension on the conjoined tendon. At this stage, trial implants were removed, and the real implants inserted and the shoulder reduced. A 3 minute Betadine soak was performed followed by a thorough irrigation with normal saline. Subscapularis was repaired with #1 PDS to the cuff of tissue on the lesser tuberosity. Excellent reapproximation of tissue achieved. Hemostasis was found to be appropriate. The deltopectoral interval was reapproximated with 0 Vicryl, subcutaneous and subcuticular closure was then performed with number 2-0 Vicryl and 4-0 Monocryl, respectively. A skilled hospital administrative assistant was critical for this case to aid in patient positioning, tissue retraction, limb manipulation/positioning, retraction for glenoid exposure, which was challenging, awareness and protection of critical structures, and closure. PLAN: 1. Sling at all times for the operative upper extremity. 2. AROM of elbow, forearm, wrist, and digits as tolerated. 3. PT/OT consults for education and assistance. 4. Social consult for discharge planning. 5. 23 hr perioperative antibiotics. 6. Early ambulation, and SCDs for DVT prophylaxis. 7. Admit to the hospital for the above 8. Analgesics p.r.n.
--- NOTE | 2023-08-02 16:35 | RESP.RT ---
Placed ETCO2 monitor on Pt. Currently her end tidal, is 36 with a RR of 18. SPo2 94% on 1L. talked about getting a sleep study when she is healed from shoulder, pt is in full agreement.
--- NOTE | 2023-08-02 17:00 | P.IMCN_ITS ---
Date of Consult Patient: Scotty Patient Consult date: 08/02/23 Requesting Physician: Orthopedics Primary Care Provider: Andie Crenshaw MD Consult Narrative Narrative: Alejandra Scott is a 68 year old female admitted to the hospital for left total shoulder arthroplasty. Procedure performed by Dr. Milan without complications. He requests consultation for management of medical problems postoperatively. Patient reports today that she has mild pain in the area of her left shoulder. She feels like her left hand is regaining some motion and sensation. Preoperatively she reports she was generally doing well without recent illness or injury. She has previously had a rotator cuff repair on this left shoulder which was unsuccessful at relieving her chronic shoulder pain. She is apprehensive about recovery and rehab of this left shoulder postoperatively. Preop evaluation was unremarkable except for noting that she was hypoxic. Because the hypoxia she had evaluation including a chest CT for PE and an echocardiogram. These were both unremarkable. She reports that she is chronically hypoxic at home 4 years with O2 sats running in the low 90s. She reports having no dyspnea associated with this. She reports that occasionally her will complain of her snoring. There has been no noted apneic spells. Review of Systems Narrative: No recent illness or injury. [facility] Medical History (Updated 08/02/23 @ 17:08 by Jose Berger MD) Obstructive sleep apnea ?G47.33 - Obstructive sleep apnea (adult) (pediatric) (ICD-10) Hyperlipidemia ?E78.5 - Hyperlipidemia, unspecified (ICD-10) Vertigo ?R42 - Dizziness and giddiness (ICD-10) Urinary incontinence ?R32 - Unspecified urinary incontinence (ICD-10) Right trigeminal neuralgia ?G50.0 - Trigeminal neuralgia (ICD-10) Refusal of statin medication by patient ?Z53.20 - Procedure and treatment not carried out because of patient's decision for unspecified reasons (ICD-10) History of renal calculi ?Z87.442 - Personal history of urinary calculi (ICD-10) History of chronic hepatitis ?Z87.19 - Personal history of other diseases of the digestive system (ICD-10) Left shoulder pain ?M25.512 - Pain in left shoulder (ICD-10) Bone spur of foot ?M77.50 - Other enthesopathy of unspecified foot and ankle (ICD-10) Lumbar stenosis ?M48.061 - Spinal stenosis, lumbar region without neurogenic claudication (ICD-10) Low back pain ?M54.50 - Low back pain, unspecified (ICD-10) Liver problem ?K76.9 - Liver disease, unspecified (ICD-10) Elevated cholesterol ?E78.00 - Pure hypercholesterolemia, unspecified (ICD-10) Hypertension ?I10 - Essential (primary) hypertension (ICD-10) Surgical History (Updated 08/02/23 @ 17:08 by Jose Berger MD) History of arthroplasty of left shoulder ?Z96.612 - Presence of left artificial shoulder joint (ICD-10) History of arthroscopy of right shoulder (04/14/21) ?Z98.890 - Other specified postprocedural states (ICD-10) History of tonsillectomy ?Z90.89 - Acquired absence of other organs (ICD-10) H/O excision of ganglion cyst (04/08/05) ?Z98.890 - Other specified postprocedural states (ICD-10) H/O foot surgery (07/22/05) ?Z98.890 - Other specified postprocedural states (ICD-10) S/P trigger finger release (08/07/20) ?Z98.890 - Other specified postprocedural states (ICD-10) Status post total left knee replacement (09/02/20) ?Z96.652 - Presence of left artificial knee joint (ICD-10) History of repair of left rotator cuff (08/05/22) ?Z98.890 - Other specified postprocedural states (ICD-10) History of section ?Z98.891 - History of uterine scar from previous surgery (ICD-10) History of carpal tunnel release (05/09/03) ?Z98.890 - Other specified postprocedural states (ICD-10) History of right knee surgery ?Z98.890 - Other specified postprocedural states (ICD-10) History of lumbar fusion (07/11/14) ?Z98.1 - Arthrodesis status (ICD-10) Family History Mother Borderline personality disorder Myocardial infarction, Onset Age: 82 Maternal Grandmother Diabetes Lung cancer Uncle Diabetes Father Lung cancer Social History (Updated 08/02/23 @ 17:05 by Jose Berger MD) Narrative: Patient lives with her . She does not smoke. She does not drink alcohol. Code status is full. What is your current living situation?: I presently have a place to live Problems where you live: no known problems In the past 12 months, utilities in danger of being shut off: no In past 12 months, lack of transportation kept you from medical appts, meetings, work, or getting things needed for daily living: no In the past 12 mos, have been you worried that your food would run out before you had money to buy more?: never true In the past 12 mos, the food you bought just didn't last and you didn't have money to buy more?: never true Highest level of school completed/degree received: Bachelor's degree Smoking Status: Never smoker Do you use any of these nicotine containing products: None How often do you have a drink containing alcohol: never How often do you have six or more drinks on one occasion: Never AUDIT-C Alcohol total score: 0 Non-prescribed substance use: denies use Caffeine: Yes How often does anyone, including family, friends and others, physically hurt you : never How often does anyone, including family, friends and others, insult or talk down to you: never How often does anyone, including family, friends and others, threaten you with harm: never How often does anyone, including family, friends and others, scream or curse at you: never service: No Meds Home Medications and Allergies Home Medications Medication Instructions Recorded Confirmed Type cholecalciferol (vitamin D3) 50 50 mcg PO DAILY 03/26/22 08/02/23 History mcg (2,000 unit) tablet coenzyme Q10 100 mg capsule 100 mg PO DAILY 03/26/22 08/02/23 History grape seed extract 50 mg capsule 50 mg PO DAILY 03/26/22 08/02/23 History ibuprofen 200 mg tablet 200 mg PO Q4H PRN 03/26/22 08/02/23 History lisinopril 20 1 tab PO DAILY 03/26/22 08/02/23 History mg-hydrochlorothiazide 12.5 mg tablet multivitamin 1 tab PO DAILY 03/26/22 08/02/23 History omega 2-kka-tgs-fish oil 1,000 mg 1 cap PO DAILY 03/26/22 08/02/23 History (120 mg-180 mg) capsule (Fish Oil) gabapentin 100 mg capsule 200 mg PO QHS 10/27/22 08/02/23 History metoprolol succinate 50 mg 50 mg PO DAILY 10/27/22 08/02/23 History tablet,extended release 24 hr rosuvastatin 5 mg tablet (Crestor) 5 mg PO MOWEFR 07/29/23 08/02/23 History Allergies Allergy/AdvReac Type Severity Reaction Status Date / Time atorvastatin Allergy Neuralgia Verified 08/02/23 09:51 Exam Narrative: Exam Narrative: She is alert and appears in no distress. She is currently breathing 1 L of oxygen per nasal cannula. Breathing appears unlabored. She is alert and oriented to her circumstances. Oropharynx with very small airway. Hard palate is not entirely visible with maximal mouth opening. Neck is supple without mass or adenopathy. No stridor. Respirations are clear to auscultation. Breath sounds are symmetric. Cardiovascular: S1, S2, regular rate and rhythm. Abdomen: Bowel sounds active. Abdomen is soft without tenderness or mass. Left upper extremity has intact pulses diminished but partially present sensation and motion in her fingers. Right upper extremity and bilateral lower extremities with intact pulses and sensation and no edema Const: Vital Signs, click to edit/add: Vital Signs - 24 hr 08/02/23 10:17 08/02/23 11:20 08/02/23 11:25 Temperature 98.0 F Pulse Rate 69 58 L 59 L Pulse Rate [Right Pulse Oximeter] Respiratory Rate 16 16 16 Blood Pressure 143/76 H 133/88 133/69 Blood Pressure [Ri ght Arm] Pulse Oximetry 94 94 96 Oxygen Delivery Me thod Room Air Nasal Cannula Nasal Cannula Oxygen Flow Rate 2 2 08/02/23 14:26 08/02/23 14:30 08/02/23 14:35 Temperature 97.6 F Pulse Rate 88 87 76 Pulse Rate [Right Pulse Oximeter] Respiratory Rate 16 16 16 Blood Pressure 151/71 H 142/88 H 151/81 H Blood Pressure [Ri ght Arm] Pulse Oximetry 89 98 98 Oxygen Delivery Me thod Room Air Non Rebreather Mas k Non Rebreather Mas k Oxygen Flow Rate 5 5 08/02/23 14:40 08/02/23 14:45 08/02/23 14:50 Temperature Pulse Rate 72 72 71 Pulse Rate [Right Pulse Oximeter] Respiratory Rate 16 16 16 Blood Pressure 144/77 H 148/79 H 135/73 Blood Pressure [Ri ght Arm] Pulse Oximetry 98 93 93 Oxygen Delivery Me thod Non Rebreather Mas k Room Air Room Air Oxygen Flow Rate 5 08/02/23 14:55 08/02/23 15:00 08/02/23 15:05 Temperature 97.5 F L Pulse Rate 72 72 69 Pulse Rate [Right Pulse Oximeter] Respiratory Rate 16 16 16 Blood Pressure 143/72 H 135/69 127/74 Blood Pressure [Ri ght Arm] Pulse Oximetry 93 93 93 Oxygen Delivery Me thod Room Air Room Air Room Air Oxygen Flow Rate 08/02/23 15:10 08/02/23 15:20 08/02/23 15:30 Temperature 97.5 F L 96.7 F L 96.7 F L Pulse Rate 68 72 Pulse Rate [Right Pulse Oximeter] 74 Respiratory Rate 16 16 16 Blood Pressure 128/74 Blood Pressure [Ri ght Arm] 134/68 128/63 Pulse Oximetry 93 92 Oxygen Delivery Me thod Room Air Room Air Nasal Cannula Oxygen Flow Rate 1 08/02/23 15:45 08/02/23 16:00 08/02/23 16:15 Temperature 96.4 F L 96.5 F L Pulse Rate Pulse Rate [Right Pulse Oximeter] 78 71 79 Respiratory Rate 16 16 Blood Pressure Blood Pressure [Ri ght Arm] 119/36 L 135/72 130/64 Pulse Oximetry 92 93 93 Oxygen Delivery Me thod Nasal Cannula Nasal Cannula Nasal Cannula Oxygen Flow Rate 1 1 1 Documenting provider has reviewed patient's vital signs: yes Assessment and Plan Assessment and plan (1) History of arthroplasty of left shoulder: Problem comment: 08/02/[address] Milan without complications Status: Acute (2) Obstructive sleep apnea: Problem comment: Likely the cause of her asymptomatic chronic hypoxia. Recommend outpatient sleep study after she has recovered from shoulder surgery. Caution with opioids postoperatively making sleep apnea worse Status: Suspected (3) Hypertension: Problem comment: Resume home blood pressure medications as tolerated Status: Acute Plan Patient will be monitored overnight for hypoxia, hypercarbia, sleep apnea. Routine postoperative pain management and therapy. Caution about opioids with sleep apnea. Strongly recommend outpatient sleep study. Total time spent today is 45 minutes
--- NOTE | 2023-08-02 18:28 | PC.NURSE ---
Shift Summary: Patient pleasant and cooperative. Up with one assist and gait belt. Fingers warm, movement present, [employer] <3sec, denied pain. Cryocuff on patient. Vitals have been stable, o2 sat 88-94% on RA, encouraged to use incentive spirometer. Tolerating regular diet, denied nausea. Dressing over left shoulder dry and intact, arm in sling. Lung sounds clear.
[2023-08-02] MEDS: GABAPENTIN 100 MG CAPSULE 200 MG PO (20:46)
[2023-08-02] MEDS: SENNOSIDES 1 TAB TABLET 2 TAB PO (20:46)
[2023-08-03] MEDS: ACETAMINOPHEN 500 MG TABLET 1000 MG PO ×2 (00:29→05:53)
[2023-08-03] MEDS: CEFAZOLIN 2 GM in 0.9 % SODIUM CHLORIDE Mini-bag 100 ML IVPB ×2 (01:51→09:59)
[2023-08-03] MEDS: MELATONIN 3 MG TABLET PO (01:51)
[2023-08-03 02:10] VITALS: BP 153/78; PULSE 80; RESP 18; TEMP 36.4; O2SAT 93
--- NOTE | 2023-08-03 06:29 | PC.NURSE ---
Pt is alert and oriented x3. Afebrile. Pt reports 0/10 pain in left arm/shoulder, pain managed with scheduled medications. Pt denies chest pain, SOB, and N/V. Lung sounds are clear. Pt?s left shoulder dressing is CDI. Pt is voiding and tolerating a regular diet.?Pt is up SBA to bathroom and slept intermittently throughout night.??
[2023-08-03 06:31] LABS: Hematocrit 37.6 % (33.0-51.0); Hemoglobin* 12.3 gm/dL (12.0-16.0); Mean Corpuscular HGB Conc 33 gm/dL (32-36); Mean Corpuscular Hemoglobin 30 pg (26-34); Mean Corpuscular Volume 92 fL (80-100); Platelet Count* 214 K/uL (140-440); Red Blood Count 4.08 m/uL (4.00-5.20); Slide Review Reflex No; White Blood Count* 14.58 K/uL (4.50-11.00)
[2023-08-03 06:43] LABS: Potassium* 4.3 mmol/L (3.6-5.1); Sodium* 137 mmol/L (135-149)
[2023-08-03 06:46] LABS: Blood Urea Nitrogen* 18 mg/dL (7-30); Creatinine* 0.7 mg/dL (0.5-1.5); Est. Creatinine Clearance* 42.59; Estimated Glomerular Filt Rate 94 ml/min
[2023-08-03 07:45] VITALS: BP 124/60; PULSE 80; RESP 18; TEMP 35.8; O2SAT 93
[2023-08-03] MEDS: METOPROLOL SUCCINATE (XL) 50 MG TAB PO (08:31)
[2023-08-03] MEDS: lisinopriL 20 MG TABLET PO (08:32)
[2023-08-03] MEDS: hydroCHLOROthiazide 12.5 MG CAPSULE PO (08:32)
--- NOTE | 2023-08-03 08:32 | P.ORPN_ITS ---
Subjective Subjective Date Seen: 08/03/23 Principal diagnosis: Status postop day 1 left reverse total shoulder arthroplasty Interval history: Patient reports doing well. Acute events overnight include hypoxia. This is improving. She was maintained on low-flow O2. Strongly recommended by hospitalist to obtain sleep study postoperative. Pain managed with scheduled and PRN medications, ice. The supraclavicular nerve block is currently still working, thus no pain meds administered. She comments that she does not do well with oxycodone, does better with hydrocodone. DVT prophylaxis: SCDs, walking, bilateral knee high Rajeev stockings. Denies fevers, chills, aches, N/V, CP, SOB/REED, or lightheadedness. Ortho Exam Narrative Exam Narrative: -Patient appears comfortable in recliner; no apparent acute distress -Alert and oriented times 3 -Operative shoulder mildly swollen; soft, supple tissues; no obvious erythema. No ecchymosis. Warmth appropriate -Surgical dressing clean, dry, intact; no obvious drainage, no erythematous streaking peripheral to the bandage -Bilateral calves soft and supple; no significant swelling, edema, tenderness, erythema, discoloration, warmth, or palpable cords -2+ radial pulse, intact dermatomes and myotomes distally (5/5 strength). Axillary nerve sensation intact, no abduction strength at this time Const Vital Signs, click to edit/add: Vital Signs - 24 hr 08/02/23 10:17 08/02/23 11:20 08/02/23 11:25 Temperature 98.0 F Pulse Rate 69 58 L 59 L Pulse Rate [Right Pulse Oximeter] Respiratory Rate 16 16 16 Blood Pressure 143/76 H 133/88 133/69 Blood Pressure [Right Arm] Pulse Oximetry 94 94 96 Oxygen Delivery Method Room Air Nasal Cannula Nasal Cannula Oxygen Flow Rate 2 2 08/02/23 14:26 08/02/23 14:30 08/02/23 14:35 Temperature 97.6 F Pulse Rate 88 87 76 Pulse Rate [Right Pulse Oximeter] Respiratory Rate 16 16 16 Blood Pressure 151/71 H 142/88 H 151/81 H Blood Pressure [Right Arm] Pulse Oximetry 89 98 98 Oxygen Delivery Method Room Air Non Rebreather Mask Non Rebreather Mask Oxygen Flow Rate 5 5 08/02/23 14:40 08/02/23 14:45 08/02/23 14:50 Temperature Pulse Rate 72 72 71 Pulse Rate [Right Pulse Oximeter] Respiratory Rate 16 16 16 Blood Pressure 144/77 H 148/79 H 135/73 Blood Pressure [Right Arm] Pulse Oximetry 98 93 93 Oxygen Delivery Method Non Rebreather Mask Room Air Room Air Oxygen Flow Rate 5 08/02/23 14:55 08/02/23 15:00 08/02/23 15:05 Temperature 97.5 F L Pulse Rate 72 72 69 Pulse Rate [Right Pulse Oximeter] Respiratory Rate 16 16 16 Blood Pressure 143/72 H 135/69 127/74 Blood Pressure [Right Arm] Pulse Oximetry 93 93 93 Oxygen Delivery Method Room Air Room Air Room Air Oxygen Flow Rate 08/02/23 15:10 08/02/23 15:20 08/02/23 15:30 Temperature 97.5 F L 96.7 F L 96.7 F L Pulse Rate 68 72 Pulse Rate [Right Pulse Oximeter] 74 Respiratory Rate 16 16 16 Blood Pressure 128/74 Blood Pressure [Right Arm] 134/68 128/63 Pulse Oximetry 93 92 Oxygen Delivery Method Room Air Room Air Nasal Cannula Oxygen Flow Rate 1 08/02/23 15:45 08/02/23 16:00 08/02/23 16:15 Temperature 96.4 F L 96.5 F L Pulse Rate Pulse Rate [Right Pulse Oximeter] 78 71 79 Respiratory Rate 16 16 Blood Pressure Blood Pressure [Right Arm] 119/36 L 135/72 130/64 Pulse Oximetry 92 93 93 Oxygen Delivery Method Nasal Cannula Nasal Cannula Nasal Cannula Oxygen Flow Rate 1 1 1 08/02/23 16:45 08/02/23 17:15 08/02/23 17:52 Temperature 97 F L 97 F L 97.6 F Pulse Rate Pulse Rate [Right Pulse Oximeter] 82 76 88 Respiratory Rate 18 18 18 Blood Pressure Blood Pressure [Right Arm] 137/62 136/64 131/52 L Pulse Oximetry 88 90 88 Oxygen Delivery Method Room Air Room Air Room Air Oxygen Flow Rate 08/02/23 19:35 08/02/23 21:05 08/02/23 22:55 Temperature 97.8 F 97.9 F 97.7 F Pulse Rate Pulse Rate [Right Pulse Oximeter] 91 94 81 Respiratory Rate 20 20 18 Blood Pressure Blood Pressure [Right Arm] 151/86 H 171/84 H 141/75 H Pulse Oximetry 90 90 89 Oxygen Delivery Method Room Air Nasal Cannula Nasal Cannula Oxygen Flow Rate 0.5 0.5 08/03/23 02:10 Temperature 97.6 F Pulse Rate Pulse Rate [Right Pulse Oximeter] 80 Respiratory Rate 18 Blood Pressure Blood Pressure [Right Arm] 153/78 H Pulse Oximetry 93 Oxygen Delivery Method Nasal Cannula Oxygen Flow Rate 0.5 Assessment and Plan Assessment and plan (1) History of arthroplasty of left shoulder: Problem details: 08/02/[address] Milan without complications Status: Acute (2) Obstructive sleep apnea: Problem details: Likely the cause of her asymptomatic chronic hypoxia. Recommend outpatient slee p study after she has recovered from shoulder surgery. Caution with opioids postoperatively making sleep apnea worse Status: Suspected (3) Hypertension: Problem details: Resume home blood pressure medications as tolerated Status: Acute Plan - Complete 23 hour perioperative antibiotics. - PT/OT consult for education and assistance. - Social work consult for discharge planning - Prescribed analgesics as needed - DVT prophylaxis: Bilateral knee high Rajeev Hose stockings and SCDs - Anticipation is for discharge to home with spouse today, 08/03/2023 if the patient remains medically stable, pain is controlled, and they are safe with mobilization.
--- NOTE | 2023-08-03 11:47 | PM.IMPN1 ---
Progress Note: A&P Assessment and plan (1) History of arthroplasty of left shoulder: Problem details: 08/02/[address] Milan without complications Status: Acute (2) Osteoarthritis of left shoulder: Problem details: moderate Status: Chronic (3) Hypertension: Problem details: Resume home blood pressure medications as tolerated Status: Chronic (4) Obstructive sleep apnea: Problem details: Likely the cause of her asymptomatic chronic hypoxia. Recommend outpatient sleep study after she has recovered from shoulder surgery. Caution with opioids postoperatively making sleep apnea worse Status: Suspected (5) Obesity: Problem details: BMI 42.2 (previous BMI 42.9) Status: Chronic Subjective Time Seen by Provider: 10:36 Date Seen: 08/03/23 Interval history: Alejandra is doing well. Minimal pain. She has already had conversations with her PCP about getting an outpatient sleep study to screen for FLY. Exam Narrative: Exam Narrative: General: No acute distress. Awake, alert, oriented x3. No pallor. No jaundice. Oropharynx: Clear. Mucous membranes moist. Extremities: Left arm is in a sling. Const: Vital Signs, click to edit/add: Vital Signs - 24 hr 08/02/23 14:26 08/02/23 14:30 08/02/23 14:35 Temperature 97.6 F Pulse Rate 88 87 76 Pulse Rate [Right Pulse Oximeter] Respiratory Rate 16 16 16 Blood Pressure 151/71 H 142/88 H 151/81 H Blood Pressure [Ri ght Arm] Pulse Oximetry 89 98 98 Oxygen Delivery Me thod Room Air Non Rebreather Mas k Non Rebreather Mas k Oxygen Flow Rate 5 5 08/02/23 14:40 08/02/23 14:45 08/02/23 14:50 Temperature Pulse Rate 72 72 71 Pulse Rate [Right Pulse Oximeter] Respiratory Rate 16 16 16 Blood Pressure 144/77 H 148/79 H 135/73 Blood Pressure [Ri ght Arm] Pulse Oximetry 98 93 93 Oxygen Delivery Me thod Non Rebreather Mas k Room Air Room Air Oxygen Flow Rate 5 08/02/23 14:55 08/02/23 15:00 08/02/23 15:05 Temperature 97.5 F L Pulse Rate 72 72 69 Pulse Rate [Right Pulse Oximeter] Respiratory Rate 16 16 16 Blood Pressure 143/72 H 135/69 127/74 Blood Pressure [Ri ght Arm] Pulse Oximetry 93 93 93 Oxygen Delivery Me thod Room Air Room Air Room Air Oxygen Flow Rate 08/02/23 15:10 08/02/23 15:20 08/02/23 15:30 Temperature 97.5 F L 96.7 F L 96.7 F L Pulse Rate 68 72 Pulse Rate [Right Pulse Oximeter] 74 Respiratory Rate 16 16 16 Blood Pressure 128/74 Blood Pressure [Ri ght Arm] 134/68 128/63 Pulse Oximetry 93 92 Oxygen Delivery Me thod Room Air Room Air Nasal Cannula Oxygen Flow Rate 1 08/02/23 15:45 08/02/23 16:00 08/02/23 16:15 Temperature 96.4 F L 96.5 F L Pulse Rate Pulse Rate [Right Pulse Oximeter] 78 71 79 Respiratory Rate 16 16 Blood Pressure Blood Pressure [Ri ght Arm] 119/36 L 135/72 130/64 Pulse Oximetry 92 93 93 Oxygen Delivery Me thod Nasal Cannula Nasal Cannula Nasal Cannula Oxygen Flow Rate 1 1 1 08/02/23 16:45 08/02/23 17:15 08/02/23 17:52 Temperature 97 F L 97 F L 97.6 F Pulse Rate Pulse Rate [Right Pulse Oximeter] 82 76 88 Respiratory Rate 18 18 18 Blood Pressure Blood Pressure [Ri ght Arm] 137/62 136/64 131/52 L Pulse Oximetry 88 90 88 Oxygen Delivery Me thod Room Air Room Air Room Air Oxygen Flow Rate 08/02/23 19:35 08/02/23 21:05 08/02/23 22:55 Temperature 97.8 F 97.9 F 97.7 F Pulse Rate Pulse Rate [Right Pulse Oximeter] 91 94 81 Respiratory Rate 20 20 18 Blood Pressure Blood Pressure [Ri ght Arm] 151/86 H 171/84 H 141/75 H Pulse Oximetry 90 90 89 Oxygen Delivery Me thod Room Air Nasal Cannula Nasal Cannula Oxygen Flow Rate 0.5 0.5 08/03/23 02:10 08/03/23 07:45 08/03/23 07:45 Temperature 97.6 F 96.5 F L Pulse Rate Pulse Rate [Right Pulse Oximeter] 80 80 80 Respiratory Rate 18 18 18 Blood Pressure Blood Pressure [Ri ght Arm] 153/78 H 124/60 Pulse Oximetry 93 93 Oxygen Delivery Me thod Nasal Cannula Room Air Oxygen Flow Rate 0.5 Labs Labs: Laboratory Results - last 24 hr 08/03/23 06:01 WBC 14.58 H RBC 4.08 Hgb 12.3 Hct 37.6 MCV 92 MCH 30 MCHC 33 Plt Count 214 Sodium 137 Potassium 4.3 BUN 18 Creatinine 0.7 Estimated Creat Clear 42.59 Estimated GFR 94
== END 2023-08-03 11:13 | disposition home or self-care (01) ==
LOC: OR 09:37 → MEDSURG 09:40
PROVIDERS: PCP Family Medicine; Visit Provider Orthopaedic Surgery Sports Medicine
PROC: 0RRJ0JZ Replacement of Right Shoulder Joint with Synthetic Substitute, Open Approach (ICD-10-PCS; CPT 23472; principal; 2023-08-02 11:45)
DX: M19.012 Primary osteoarthritis, left shoulder (principal); M75.22 Bicipital tendinitis, left shoulder; G89.18 Other acute postprocedural pain; G47.33 Obstructive sleep apnea (adult) (pediatric); I10 Essential (primary) hypertension; R09.02 Hypoxemia; R06.89 Other abnormalities of breathing; E66.9 Obesity, unspecified; Z68.41 Body mass index [BMI] 40.0-44.9, adult; E78.5 Hyperlipidemia, unspecified
CPT/HCPCS: 23472; 23430; 01638; 36415; 64415; 73030; 76942; 82565; 84132; 84295; 84520; 85027; 97161; 97165; A9270; C1713; C1776; J0330; J0690; J1100; J2250; J2405; J2704; J2795; J3010; J3490; J7120

== ENCOUNTER 2023-11-09 13:00 | Outpatient (RCR) | payer MEDICARE, OTHER, SELFPAY ==
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
== END 2024-02-22 16:57 | disposition home or self-care (01) ==
PROVIDERS: PCP Family Medicine; Visit Provider Orthopaedic Surgery Sports Medicine
DX: M19.012 Primary osteoarthritis, left shoulder (principal); M75.122 Complete rotator cuff tear or rupture of left shoulder, not specified as traumatic; Z51.89 Encounter for other specified aftercare
CPT/HCPCS: 97110; 97162; 97165

== ENCOUNTER 2024-11-27 15:15 | Outpatient (RCR) | payer MEDICARE, OTHER, SELFPAY ==
--- NOTE | 2024-09-26 12:56 | PT.OPE ---
PT [place] Outpatient Eval PT [facility] Outpatient Eval Start: 09/26/24 09:35 Freq: Status: Active Protocol: Document 09/26/24 09:36 ENM (Rec: 09/26/24 11:15 ENM [id number]) E-signed By Barbie Palma, DPT Physical Therapy Outpatient Evaluation Insurance Information Recert Due Date 12/25/24 Insurance Name Medicare B Medical Diagnosis juvenile osteochondrosis of tarsus, right ankle other enthesopathy of unspecified foot and ankle achilles tendonitis, right leg Treating Diagnosis right achilles pain, muscle weakness, impaired gait, impaired balance, decreased ankle ROM Imaging Report Information Images show reduced ankle mortise without significant osteophytosis. Swelling, taking over the Achilles region, with the bulk of thickening approximately 3.5 cm from the calcaneus. Large calcaneal spurring over the superior posterior calcaneus, consistent with Shalonda deformity. Calcifications/ enthesophyte of the plantar fascial insertion at the calcaneus. No fractures, or interosseous pathology. No obvious soft tissue mass seen on x-ray. Referring MD Samaniego Subjective Subjective Patient presents to PT for complaint of right Achilles pain. She has been having this for 3 months now. Has been messing with it with icing and trying different stretches. 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 In the last week the pain has worsened. Is feeling a tightness in the calf and it is now affecting her knee. Did have a flare up of this years ago. Sits in a chair plantarflexed often which may be contributing to it. Some mornings feels like bruise. Is going on a 3 week trip in October and wants to get before before this. PMHx: HTN, When it started: months ago Describes it as: burning, sharp Timing: pain is about the same throughout the day Location: calf and medial knee Irritability: mod-severe Severity: mod Pain Comments at its best: none at rest at its worse: 6/10 easing: resting, aggravating: walking, standing , stairs Current Work Status Retired Objective Other/Pertinent Objective Ankle AROM: DF: L 0 R -3 (knee bent L 0 R 3) PF: L 55 R 59 Knee AROM WNL B Strength: DF: 4+/5 B INV: 4/5 B EV: L 4/5 R 4+/5 Palpation/joint mobility Posterior glide of talus mobilization: decreased B + for pain palpating of mid calf and distal Achilles tendon along bony growth Gait/balance: SLS limited B harder on R compared to L Patient ambulates with decreased R push off, decreased ankle rocking with antalgic gait pattern Assessment Assessment/Impression Patient is a 69 year old female presenting with chronic right Achilles pains. Has been dealing with symptoms over the last 3 months which have worsened recently. Imaging shows a Shalonda deformity. They have difficulty standing, walking and performing stairs. Alejandra will be going on a 3 week vacation next month and is worried about being limited by her pain. Upon assessment patients concordant pains brought on with palpation of Achilles and ambulation. They display decreased ankle ROM worse into dorsiflexion and are limited to 3 degrees from neutral. Ankle strength is limited bilaterally as seen with MMT. They are the most tender along medial Achilles and bony growth near insertion. Gait impairments include antalgic pattern, decreased push off and decreased ankle rocking. Symptoms consistent with Achilles tendinopathy. Alejandra would greatly benefit from skilled PT to address impairments stated above in order to perform functional mobility and recreational activities without significant discomfort or difficulty. Primary Functional Limitations walking, standing, Plan of Care Rehabilitation Potential Fair Rehabilitation Potential Comments Fair-good due to chronic nature of symptoms Physical Therapy Goals In 7-9 visits: 1. Patient will be IND with HEP and self management of symptoms 2. Patient will improve ankle DF ROM by 5 degs for improved gait mechanics 3. Patient will be able to walk throughout their day with 4/10 or less Achilles pain to demonstrate improvements in walking tolerance for vacation 4. Patient will improve global right ankle strength to 5/5 for increased support to perform safari activities on vacation 5. Patient will report a 50% reduction in calf tightness and knee pain for return to OF Coordination/Communication With Referral Source Treatment Plan/Direct Interventions Dry Needling,Electrical Stimulation,Gait Training,Heat ,Ice/Cold/Vasopneumatic,Joint Mobilization,Manual Therapy, Neuromuscular Re-ed,Self-Care/ Home Management,Therapeutic Activities,Therapeutic Exercises Frequency/Duration 1x a week for 8 weeks, as needed for 2-3 visits Patient Will Be Discharged From Therapy Completion of LTG(s), Independent w/HEP Evaluation Billing Untimed Code Treatment Minutes 28 Complexity Low Certification Information Initial Certification Date 09/26/24 Ending Certification Date 12/25/24 Provider Signature Required Yes Provider Signature Shows Agreement With POC & Medical Necessity Physician NPI Number Write NPI# Here Physician Comment/Change : Physician Signature & Date Requested Please Sign/Date Here
== END 2025-03-27 23:59 | disposition home or self-care (01) ==
PROVIDERS: PCP Family Medicine; Visit Provider Physician Assistant Surgical
DX: M92.61 Juvenile osteochondrosis of tarsus, right ankle (principal); M76.61 Achilles tendinitis, right leg; M77.50 Other enthesopathy of unspecified foot and ankle; Z51.89 Encounter for other specified aftercare
CPT/HCPCS: 97110; 97140; 97161